=== PATIENT | female | born 1940 | race Caucasian/White ===

== ENCOUNTER 2016-08-25 05:31 | Day surgery (SDC) ==
[2016-08-19 11:25] LABS: HEMOGLOBIN 11.3 g/dL (12.0-16.0); MCHC 33.2 g/dL (33-37); MCV 90.2 FL (81-99); RBC 3.77 XMIL (4.2-5.4)
[2016-08-19 11:42] LABS: AGAP 12; BUN 14 mg/dL (8-22); CALCIUM 9.1 mg/dL (8.8-10.2); CHLORIDE 92 mmol/L (98-107); COSMO 265; POTASSIUM 4.5 mmol/L (3.5-5.1); SODIUM 132 mmol/L (136-145); TCO2 28 mmol/L (25-35)
--- NOTE | 2016-08-19 14:50 | EKG Report ---
Test Performed on : 08/19/2016 10:41:50 AM Test Reason : PAT Blood Pressure : / mmHG Vent. Rate : 087 BPM Atrial Rate : 087 BPM P-R Int : 194 ms QRS Dur : 092 ms QT Int : 388 ms P-R-T Axes : 067 -19 064 degrees QTc Int : 466 ms Sinus rhythm. with premature atrial complexes. with aberrant conduction. Otherwise normal ECG When compared with ECG of 12-APR-2013 10:57, aberrant conduction. is now present Confirmed by King Jacobsen MD ([id number]) on 08/20/2016 10:21:14 PM
[2016-08-25] MEDS ORDERED: LR 1,000 ML ONE ×3 (06:01→09:33)
[2016-08-25] MEDS ORDERED: KEFZOL 1 GM/D5W 50 ML ONE (06:01)
[2016-08-25] MEDS ORDERED: PEPCID ONE (06:16)
[2016-08-25] MEDS ORDERED: REGLAN ONE (06:16)
[2016-08-25] MEDS ORDERED: MARCAINE 0.25% PF/EPI 1:200,000 ONE (06:38)
[2016-08-25] MEDS ORDERED: DIPRIVAN 1% ONE (08:58)
[2016-08-25] MEDS: MORPHINE ONE ×7 (09:10→09:54)
[2016-08-25] MEDS ORDERED: ROBINUL ONE (09:30)
[2016-08-25] MEDS ORDERED: XYLOCAINE-MPF 2% ONE (09:30)
[2016-08-25] MEDS ORDERED: EPHEDRINE ONE (09:30)
[2016-08-25] MEDS ORDERED: DECADRON ONE (09:30)
[2016-08-25] MEDS ORDERED: SODIUM CHLORIDE 0.9% 10 ML ONE (09:30)
[2016-08-25] MEDS ORDERED: QUELICIN (DOSE) ONE (09:30)
[2016-08-25] MEDS ORDERED: ZOFRAN ONE (09:30)
[2016-08-25] MEDS ORDERED: BLISTEX MEDICATED BERRY LIP BALM TOP PRN (10:44)
[2016-08-25] MEDS: PERCOCET-5 PO SCH ×3 (11:29→17:26)
[2016-08-25] MEDS ORDERED: ZOFRAN IV PRN (11:32)
[2016-08-25] MEDS: MORPHINE IV PRN ×2 (13:18→21:13)
[2016-08-25] MEDS: ORUDIS PO SCH ×2 (13:20→18:21)
[2016-08-25] MEDS: LR 1,000 ML IV SCH (17:26)
--- NOTE | 2016-08-25 17:44 | OPERATIVE NOTE ---
PROCEDURE DATE: 08/25/2016 PREOPERATIVE DIAGNOSIS: Right flank incisional hernia. POSTOPERATIVE DIAGNOSIS: Right flank incisional hernia. PRINCIPAL PROCEDURE: Open repair using mesh of right flank hernia. SURGEON: Duyen Rousseau MD CREDIT PROCESSOR: Umesh Balbuena RN. ANESTHESIA: General in addition to local anesthetic. ESTIMATED BLOOD LOSS: 25 mL. DRAINS: None. INDICATIONS: Ms. Shannon Soares is a 76-year-old white female who has had several back surgeries. She continues to have back pain and also has significant pain early in the morning as she gets up. A recent CT scan documented a hernia right flank that had colon within it and it was felt that this could be a cause of some of her symptoms and repair was recommended. This flank hernia was posterior and laterally on the right. FINDINGS: This is right flank hernia was laterally and posteriorly. It was just inferior to the 12th rib and above the pelvis. There was previous scars in this area and we made an oblique scar along with the skin lines right flank. We did have her in the left lateral decubitus position and we identified the hernia defect between layers of muscle. We repaired it using a 9 cm round piece of composite Parietex mesh and then closure of the muscle layers over it. We felt we had a good repair. DESCRIPTION OF PROCEDURE: The patient was brought to the operating room, received general anesthesia, and was intubated. We then placed her in the left lateral decubitus position and then extended the bed so that we created more space between her ribs and pelvis. Her right flank was prepped and draped in a sterile field. She received Ancef prophylactically. We used local anesthetic at the incision site. We made an oblique incision in the area of the hernia using a 10 blade scalpel. This incision was carried down through the skin and subcutaneous tissue to the hernia defect and the hernia sac, which we identified. This hernia was just lateral to the 3 layers of muscle involving the lateral abdomen. It was lateral and posterior to those 3 layers and anterior to the big muscles of the back. It was just below the costal margin on the right and above the pelvis. We used cautery and the scissors to dissect out the hernia sac and placed it back intra-abdominally. We identified all margins of this hernia defect we created some space just under the muscle and ribs so that we could place a 9 cm piece of round composite Parietex mesh into the hernia defect. At 12 o'clock we used a 0 Prolene to secure the mesh with overlap of the hernia defect. We placed it above the 11th or 12th rib. We placed a Prolene stitch at the 3 o'clock, 6 o'clock, and 9 o'clock positions also. All these Prolene sutures were tied to the muscle without cutting through the muscle to secure the mesh up against the muscle and hernia defect. We closed the muscle layers over the hernia defect in layers. It was 3 layers of muscle closure. The first layer was a [id number] 0 Vicryl stitches. We used a running 0 Vicryl stitch to close the 2nd muscle layer and another running 0 Vicryl stitch to close the 3rd muscle layer over the mesh. We were happy with the repair. Any bleeding was controlled using cautery and then we closed the skin incision with a skin clip artificial breeding distributor and dressings were applied. Plans are for her to go the recovery room and then be admitted to the floor so that we could make sure that her pain was controlled and that she was steady on her feet prior to discharge.
[2016-08-25] MEDS: ASPIRIN PO SCH (21:12)
[2016-08-25] MEDS: ZOCOR PO SCH (21:12)
[2016-08-25] MEDS: COLACE PO SCH (21:12)
[2016-08-25] MEDS: LYRICA PO SCH (21:12)
[2016-08-25] MEDS: PERIDEX MT SCH (21:13)
[2016-08-25] MEDS: QUININE SULFATE PO SCH (21:13)
[2016-08-25] MEDS: TYLENOL PM PO SCH (21:14)
[2016-08-26] MEDS: PERCOCET-5 PO SCH ×4 (03:56→21:37)
[2016-08-26] MEDS: PRILOSEC PO SCH (06:16)
--- NOTE | 2016-08-26 09:01 | PROGRESS NOTE ---
DATE: 08/26/2016 SUBJECTIVE: Ms. Shannon Soares is now postop day 1 from a right flank hernia repair using mesh. I think she has done well but she is quite sore on the right side requiring some IV pain medicine. She did rest well during the night. OBJECTIVE: Her heart rate is 89, blood pressure 139/65, O2 saturation 99%. She is voiding without a Peng. Her urine output it has been adequate. She is afebrile on no antibiotics. She did receive Kefzol in the perioperative period. She has been on clear liquids which she has tolerated. ASSESSMENT/PLAN: We will advance her diet to a regular diet. We will ask physical therapy to evaluate her to help increase her activity safely.
[2016-08-26] MEDS: LR 1,000 ML IV SCH (09:15)
[2016-08-26] MEDS: MAXZIDE-25 PO SCH (09:16)
[2016-08-26] MEDS: CYMBALTA PO SCH (09:16)
[2016-08-26] MEDS: PRINIVIL PO SCH (09:16)
[2016-08-26] MEDS: LYRICA PO SCH ×2 (09:16→21:37)
[2016-08-26] MEDS: COLACE PO SCH ×2 (09:17→21:36)
[2016-08-26] MEDS: ORUDIS PO SCH ×3 (09:17→21:37)
[2016-08-26] MEDS: ASPIRIN PO SCH ×2 (09:17→21:38)
[2016-08-26] MEDS: PERIDEX MT SCH ×2 (09:20→21:38)
[2016-08-26] MEDS: MORPHINE IV PRN (09:26)
[2016-08-26] MEDS: ZOCOR PO SCH (21:36)
[2016-08-26] MEDS: QUININE SULFATE PO SCH (21:36)
[2016-08-26] MEDS: TYLENOL PM PO SCH (21:37)
[2016-08-27] MEDS: LR 1,000 ML IV SCH ×2 (01:16→05:51)
[2016-08-27] MEDS: PRILOSEC PO SCH ×2 (05:51→06:16)
[2016-08-27 07:44] VITALS: BP 138/58
[2016-08-27] MEDS: MAXZIDE-25 PO SCH (09:24)
[2016-08-27] MEDS: ORUDIS PO SCH (09:24)
[2016-08-27] MEDS: LYRICA PO SCH (09:24)
[2016-08-27] MEDS: CYMBALTA PO SCH (09:25)
[2016-08-27] MEDS: PRINIVIL PO SCH (09:26)
[2016-08-27] MEDS: ASPIRIN PO SCH (09:26)
[2016-08-27] MEDS: PERCOCET-5 PO SCH (09:26)
[2016-08-27] MEDS: COLACE PO SCH (09:26)
[2016-08-27] MEDS: PERIDEX MT SCH (09:50)
--- NOTE | 2016-08-27 16:29 | DISCHARGE SUMMARY ---
ADMISSION DATE: 08/25/2016 DISCHARGE DATE: 08/27/2016 ADMITTING DIAGNOSIS: Right flank hernia. DISCHARGE DIAGNOSIS: Right flank hernia. PRINCIPAL PROCEDURE: Open repair of right flank hernia using mesh on 08/25/2016. DISCHARGE DISABILITIES: Full. DISCHARGE DIET: Regular. DISCHARGE DISPOSITION: She will return to our outpatient offices next week. DISCHARGE MEDICATIONS: She is to return to her home medications. HOSPITAL COURSE: Ms. Shannon Soares she is a 76-year-old white female who has had several back surgeries and she has developed a significant right flank hernia that contained her right colon and I feel that it was related to some of her back surgery. This hernia was just inferior to the costal margin on the right and above her pelvis. Repair was recommended. On the day of surgery, she presented through outpatient surgery. She went to the operating room, and we placed her in the left lateral decubitus position so that we could repair this flank hernia. We made an incision using a prior scar. It was an oblique incision in the right flank and this incision was carried down through the soft tissue to the muscle layers and we identified the hernia. The hernia was mobilized. We placed a 9 cm round piece of composite Parietex intra-abdominally but we did not violate the peritoneum. We had good overlap of our mesh circumferentially along the defect. We did have to take a stitch above 1 of the ribs to secure this mesh. We closed 3 layers of muscle over the mesh and then closed the wound with a skin clip library technical assistant. We were happy with our hernia repair and after surgery she went to the recovery room and then was admitted. She did have significant pain in the area of her hernia repair and during her 2 days of admission we increased her activity with help of physical therapy. We started her on liquids and advanced her to a regular diet. Although her soreness remained, she continued to get more active and we felt it was safe to discharge her home on postop day 2, under the care of her family. At discharge, she was tolerating a regular diet. Her incision was healing well without evidence of infection and she was able to ambulate in the halls with a walker. DISCHARGE INSTRUCTIONS: She will return to see me next week for followup. She is to return to her home medications and she knows to contact me with any problems.
== END 2016-08-27 11:03 | disposition home or self-care (01) ==
LOC: OPS 05:31 → UNDOADMOB 10:07 → 4N 10:07 → UNDODISOB 08-27 11:03 → OPS 08-27 11:03
PROVIDERS: ATTEND Surgery
DX: K43.2 Incisional hernia without obstruction or gangrene (principal); F41.9 Anxiety disorder, unspecified; M19.90 Unspecified osteoarthritis, unspecified site; I10 Essential (primary) hypertension; E78.00 Pure hypercholesterolemia, unspecified; M81.0 Age-related osteoporosis without current pathological fracture
CPT/HCPCS: 80048; 85027; 93005; 93010; 94761; 94799; J0330; J0690; J1100; J2270; J2405; J7120; 97116-GP; 97530-GP